=== PATIENT | female | born 2000 | race Two or more races ===

== ENCOUNTER 2020-12-25 15:02 | Outpatient (CLI) | payer OTHER | END 2020-12-25 15:03 | disposition critical access hospital (66) | LOC: EMS 15:02 | DX: R10.9 Unspecified abdominal pain (principal) | CPT/HCPCS: A0425; A0429 ==

== ENCOUNTER 2020-12-25 15:23 | Inpatient (IN) | payer OTHER ==
[2020-12-25] MEDS ORDERED: SODIUM CHLORIDE 0.9% 1,000 ML IV STA ×2 (15:34→17:30)
[2020-12-25] MEDS ORDERED: HYDROmorphone 1 MG/ML CARPUJECT IVP STA ×2 (15:34→17:00)
[2020-12-25] MEDS ORDERED: ONDANSETRON 4 MG/2 ML VIAL IVP STA (15:34)
--- NOTE | 2020-12-25 15:35 | ED Physician Documentation ---
PD HPI ABD PAIN - Stated complaint Stated Complaint: ABD PX - Chief complaint Chief Complaint: Abd Pain - History obtained from History obtained from: Patient - History of Present Illness Timing - onset: How many days ago (2-3) Timing - duration: Days (2-3) Timing - details: Gradual onset Quality: Cramping, Aching, Pain Location: Periumbilical, RLQ, Suprapubic Radiation: Lower back. No: Left flank, Right flank Improved by: Laying still. No: Eating Worsened by: Moving, Palpation. No: Eating Associated symptoms: Nausea, Loss of appetite, Vaginal bleeding (spotting). No: Fever, Vomiting, Diarrhea, Constipation (no BM for 2 days but would not be unusual, per patient.), Vaginal dc Similar symptoms before: Has not had sx before Recently seen: Not recently seen Review of Systems Constitutional: reports: Fever (subjective), Chills, Myalgias Nose: denies: Rhinorrhea / runny nose, Congestion Throat: denies: Sore throat Respiratory: denies: Cough GI: reports: Abdominal Pain, Nausea. denies: Vomiting, Diarrhea : reports: LMP (a month ago), Vaginal bleeding (some spotting). denies: Dysuria, Frequency, Discharge Skin: denies: Rash, Lesions Neurologic: reports: Generalized weakness. denies: Focal weakness, Numbness, Near syncope PD PAST MEDICAL HISTORY - Past Medical History Cardiovascular: None Respiratory: None Neuro: None Endocrine/Autoimmune: None - Past Surgical History Past Surgical History: No - Allergies Allergies/Adverse Reactions: Allergies Allergy/AdvReac Type Severity Reaction Status Date / Time No Known Drug Allergies Allergy Verified 12/25/20 15:30 - Living Situation Living Arrangement: reports: At home - Social History Does the pt smoke?: No Does the pt drink ETOH?: No Does the pt have substance abuse?: No - Family History Family history: reports: Non contributory PD ED PE NORMAL - Vitals Vital signs reviewed: Yes - General General: Alert and oriented X 3, Well developed/nourished, Other (Is moderately uncomfortable due to abdominal pain. There are some moderate distention of the abdomen. Bowel sounds are present but hypoactive.) - HEENT HEENT: Pharynx benign - Neck Neck: Supple, no meningeal sign, No adenopathy - Cardiac Cardiac: No murmur. No: RRR (tachycardic but regular. ) - Respiratory Respiratory: Clear bilaterally - Abdomen Abdomen: Soft, No organomegaly, Other (lower abd in particular with some distension and general tenderness to light palpation and percussion, right more than left. No massess nor hernias. Upper abd not tender. ) - Female Female : Deferred - Rectal Rectal: Deferred - Back Back: No CVA TTP - Derm Derm: Normal color, Warm and dry - Extremities Extremities: Normal ROM s pain, No edema, No calf tenderness / cord - Neuro Neuro: Alert and oriented X 3, No motor deficit, Normal speech Results - Vitals Vitals: Vital Signs - 24 hr 12/25/20 12/25/20 15:30 16:45 Temperature 36.6 C Heart Rate 111 H 112 H Respiratory 18 17 Rate Blood Pressure 128/98 H 140/75 H O2 Saturation 98 99 Oxygen O2 Source Room air - Labs Labs: Laboratory Tests 12/25/20 12/25/20 12/25/20 15:41 15:41 15:41 WBC 11.8 H RBC 5.32 Hgb 14.0 Hct 43.3 MCV 81.4 MCH 26.3 L MCHC 32.3 RDW 13.2 Plt Count 292 MPV 8.9 Neut # (Auto) 9.3 H Lymph # (Auto) 1.6 [place] # (Auto) 0.7 Eos # (Auto) 0.1 Baso # (Auto) 0.0 Absolute Nucleated RBC 0.00 Nucleated RBC % 0.0 Sodium 137 Potassium 3.4 L Chloride 99 L Carbon Dioxide 27 Anion Gap 11.0 BUN 14 Creatinine 0.9 Estimated GFR (MDRD) 81 L Glucose 111 H Calcium 9.1 Total Bilirubin 0.9 AST 20 ALT 35 Alkaline Phosphatase 51 Total Protein 8.4 H Albumin 4.6 Globulin 3.8 Albumin/Globulin Ratio 1.2 Lipase 29 Serum HCG, Qual NEGATIVE - Rads (name of study) abd/pelvic CT Radiology: Prelim report reviewed (Incidental 4 cm left ovarian cyst. mild signs of pelvic free fluid. Appendix shows swelling and inflammation with an small appendicolith, with decreased wall enhancement and some free fluid suggesting perforation.), See rad report PD MEDICAL DECISION MAKING - ED course Complexity details: considered differential (finding c/w acute abd lower abd. Concern for appy, bleeding cyst, ectopic (denies sexual activity), pyelo, other process. ), d/w patient, d/w lead consultant (Dr. Lagos, surgery carbon cleaner. ) Departure - Departure Disposition: ED Transfer to [facility] Clinical Impression: Abdominal pain, acute, right lower quadrant Appendicitis Qualifiers: Appendicitis type: acute appendicitis Acute appendicitis type: with generalized peritonitis Appendicitis gangrene presence: without gangrene Appendicitis perforation presence: with perforation Appendicitis abscess presence: without abscess Qualified Code(s): K35.20 - Acute appendicitis with generalized peritonitis, without abscess Ovarian cyst Qualifiers: Laterality: left Qualified Code(s): N83.202 - Unspecified ovarian cyst, left side Condition: Stable Record reviewed to determine appropriate education?: Yes
[2020-12-25] MEDS ORDERED: IOPAMIDOL-300 50 ML VIAL ONE (15:42)
[2020-12-25 15:51] LABS: BASOPHILS % (AUTO) 0.2 %; EOSINOPHILS # (AUTO) 0.1 10^3/uL (0.0-0.7); EOSINOPHILS % (AUTO) 0.9 %; HCT - HEMATOCRIT 43.3 % (37.0-47.0); LYMPHOCYTES # (AUTO) 1.6 10^3/uL (1.5-3.5); LYMPHOCYTES % (AUTO) 13.8 %; MEAN CORPUSCULAR HEMOGLOBIN 26.3 pg (27.0-31.0); MEAN CORPUSCULAR HGB CONC 32.3 g/dL (32.0-36.0); MEAN CORPUSCULAR VOLUME 81.4 fL (81.0-99.0); MEAN PLATELET VOLUME 8.9 fL (7.9-10.8); MONOCYTES # (AUTO) 0.7 10^3/uL (0.0-1.0); MONOCYTES % (AUTO) 5.9 %; NEUTROPHILS # (AUTO) 9.3 10^3/uL (1.5-6.6); NEUTROPHILS % (AUTO) 78.8 %; PLT - PLATELET COUNT 292 10^3/uL (130-450); RED BLOOD COUNT 5.32 10^6/uL (4.20-5.40); RED CELL DISTRIBUTION WIDTH 13.2 % (12.0-15.0); WHITE BLOOD COUNT 11.8 x10^3/uL (4.8-10.8)
[2020-12-25 16:06] LABS: ALBUMIN 4.6 g/dL (3.2-5.5); ALBUMIN/GLOBULIN RATIO 1.2 (1.0-2.2); BILIRUBIN,TOTAL 0.9 mg/dL (0.2-1.0); CALCIUM 9.1 mg/dL (8.5-10.3); CREATININE 0.9 mg/dL (0.4-1.0); POTASSIUM 3.4 mmol/L (3.5-5.0); TOTAL PROTEIN 8.4 g/dL (6.7-8.2)
[2020-12-25 16:13] LABS: HCG,QUALITATIVE BLOOD NEGATIVE
[2020-12-25] MEDS ORDERED: PIPERACILLIN/TAZOBACTAM 3.375 GM in SODIUM CHLORIDE 0.9% MINIBAG 100 ML IV STA (16:32)
[2020-12-25] MEDS ORDERED: IOPAMIDOL-300 50 ML VIAL IVP ONE (17:00)
--- NOTE | 2020-12-25 17:15 | CT Report ---
PROCEDURE: Abdomen/Pelvis W INDICATIONS: lower abd pain 2 days, right lower mainly CONTRAST: IV CONTRAST: Isovue 300 ml: 100 PO CONTRAST: *NO PO CONTRAST TECHNIQUE: After the administration of 100 mL Isovue-300 contrast, 5 mm thick sections acquired from the diaphra gms to the symphysis. 5 mm thick coronal and sagittal reformats were acquired. For radiation dose r eduction, the following was used: automated exposure control, adjustment of mA and/or kV according t o patient size. COMPARISON: None. FINDINGS: Image quality: Excellent. ABDOMEN: Mild bibasilar atelectasis and respiratory motion. Diffuse hypoattenuation of the liver. Normal appearance of the gallbladder, pancreas, spleen, and adr enal glands. Normal enhancement of the kidneys. No hydronephrosis. Normal course and caliber of the ureters. Normal bladder. Uterus is anteverted. 4.3 cm simple appearing left ovarian cyst. No hilar hernia. No small bowel obstruction. There is mild dilation of the appendix to 9 mm with surr ounding fatty stranding. There is a focal region of loss and wall enhancement along the anterior dist al margin of the appendix which along with a moderately increased degree of free fluid in the pelvis is concerning for perforation. No loculated fluid collection is identified. Free fluid is seen about the uterus predominantly. No enlarged abdominal lymph nodes. No free air. Aorta and inferior vena cava are normal. No acute bony abnormality . IMPRESSION: 1. Acute appendicitis. A small region of decreased wall enhancement in the distal aspect of the appen lucas as well as mildly increased expected volume of free fluid in the pelvis is concerning for perfora tion. 2. While there is a moderate volume of free fluid in the pelvis, no loculated fluid collection is cur rently noted. 3. Hepatic steatosis. 4. There is a 4.3 cm simple appearing left ovarian cyst. Reviewed by: Cale Chambers on 12/25/2020 4:14 PM NOEL Approved by: Cale Chambers on 12/25/2020 4:14 PM NOEL Station ID: [id number]
--- NOTE | 2020-12-25 17:41 | SURGERY HX AND PHYSICAL(T) ---
Surgical History & Physical - Chief Complaint/HPI Chief Complaint: RLQ abdominal pain History of Present Illness: 19 yo female had onset of lower abdominal apin with nausea and anorexia beginning 2 days ago. Pain worse this morning. No diarrhea. No fever. - PMH/PSH/Social Hx Does the pt have a hx of MRSA?: No Neurological History: None Cardiovascular: None Respiratory: None Endocrine/Autoimmune: None Is Patient ?: No Smoking Status: Never smoker Does the pt drink ETOH?: No Does the pt have substance abuse?: No - Family Hx Family Hx: Unremarkable - Home Meds and Allergies Allergies/Adverse Reactions: Allergies Allergy/AdvReac Type Severity Reaction Status Date / Time No Known Drug Allergies Allergy Verified 12/25/20 15:30 - Review of Systems Constitutional: Poor appetite Gastrointestinal: Nausea - Vital Signs Heart Rate: 112 Blood Pressure: 140/75 Temperature: 36.6 C Respiratory Rate: 17 O2 Saturation: 99 Weight (kg): 97.522 kg Height: 1.55 m - Physical Exam Eyes Bilatera: positive: Normal inspection ENT: positive: ENT inspection nml Neck: positive: Nml inspection Respiratory: positive: No respiratory distress Cardiovascular: positive: Regular rate & rhythm Abdomen: positive: Tenderness (RLQ, positive Rovsing's sign), Guarding, Rebound - Patient Review Patient Review: Problems were reviewed with the patient during this visit. Medications were reviewed with the patient during this visit. Allergies were reviewed this patient during this visit. Pertinent Tests Reviewed: All pertitent test for this patient were reviewed. - Assessment & Plan Assessment and Plan: Laboratory Results - last 24 hr 12/25/20 12/25/20 12/25/20 15:41 15:41 15:41 WBC 11.8 H RBC 5.32 Hgb 14.0 Hct 43.3 MCV 81.4 MCH 26.3 L MCHC 32.3 RDW 13.2 Plt Count 292 MPV 8.9 Neut # (Auto) 9.3 H Lymph # (Auto) 1.6 [place] # (Auto) 0.7 Eos # (Auto) 0.1 Baso # (Auto) 0.0 Absolute Nucleated RBC 0.00 Nucleated RBC % 0.0 Sodium 137 Potassium 3.4 L Chloride 99 L Carbon Dioxide 27 Anion Gap 11.0 BUN 14 Creatinine 0.9 Estimated GFR (MDRD) 81 L Glucose 111 H Calcium 9.1 Total Bilirubin 0.9 AST 20 ALT 35 Alkaline Phosphatase 51 Total Protein 8.4 H Albumin 4.6 Globulin 3.8 Albumin/Globulin Ratio 1.2 Lipase 29 Serum HCG, Qual NEGATIVE CT scan abdomen and pelvis: Fatty liver, appendicitis with free fluid in pelvis, possible perforated appendicitis, 4cm simple left ovarian cyst Assessment: Acute appendicitis, possibly perforated Plan: Preop Zosyn given in ER. Patient consented for lap or open appendectomy. Risks of procedure discussed with patient, including but not limited to conversion to open appendectomy, infection, bleeding, abscess formation.
[2020-12-25 17:44] LABS: B. PARAPERTUSSIS- RESP PCR PAN NOT DETECTED; B. PERTUSSIS- RESP PCR PANEL NOT DETECTED; C. PNEUMONIAE- RESP PCR PANEL NOT DETECTED; CORONAVIRUS 229E-RESP PCR NOT DETECTED; CORONAVIRUS HKU1-RESP PCR NOT DETECTED; CORONAVIRUS NL63-RESP PCR NOT DETECTED; CORONAVIRUS OC43-RESP PCR NOT DETECTED; HUMAN METAPNEUMOVIRUS NOT DETECTED; INFLUENZA A- RESP PCR PANEL NOT DETECTED; INFLUENZA B - RESP PCR PANEL NOT DETECTED; M. PNEUMONIAE- RESP PCR PANEL NOT DETECTED; PARAINFLUENZA VIRUS 1 NOT DETECTED; PARAINFLUENZA VIRUS 2 NOT DETECTED; PARAINFLUENZA VIRUS 3 NOT DETECTED; PARAINFLUENZA VIRUS 4 NOT DETECTED; RHINOVIRUS/ENTEROVIRUS NOT DETECTED; RSV- RESP PCR PANEL NOT DETECTED; SARS-CoV-2 -RESP PCR PANEL NOT DETECTED
--- NOTE | 2020-12-25 17:56 | ANESTHESIA ---
Pre-Anesthesia VS, & Labs - Diagnosis appendecitisis - Procedure laparoscopic appendectomy Vital Signs: Temp Pulse Resp BP Pulse Ox 36.6 C 112 H 17 140/75 H 99 12/25/20 17:46 12/25/20 17:46 12/25/20 17:46 12/25/20 17:46 12/25/20 17:46 Height: 5 ft 1 in Weight (kg): 97.522 kg Body Mass Index: 40.6 BMI Classification: Morbidly Obese - NPO >8 hours - Is Patient ?: No - Lab Results Current Lab Results: Laboratory Tests 12/25/20 15:41: Serum HCG, Qual NEGATIVE 12/25/20 15:41: Sodium 137, Potassium 3.4 L, Chloride 99 L, Carbon Dioxide 27, Anion Gap 11.0, BUN 14, Creatinine 0.9, Estimated GFR (MDRD) 81 L, Glucose 111 H , Calcium 9.1, Total Bilirubin 0.9, AST 20, ALT 35, Alkaline Phosphatase 51, Total Protein 8.4 H, Albumin 4.6, Globulin 3.8, Albumin/Globulin Ratio 1.2, Lipase 29 12/25/20 15:41: WBC 11.8 H, RBC 5.32, Hgb 14.0, Hct 43.3, MCV 81.4, MCH 26.3 L, MCHC 32.3, RDW 13.2, Plt Count 292, MPV 8.9, Neut # (Auto) 9.3 H, Lymph # (Auto) 1.6, [place] # (Auto) 0.7, Eos # (Auto) 0.1, Baso # (Auto) 0.0, Absolute Nucleated RBC 0.00, Nucleated RBC % 0.0 Lab results reviewed: Yes Fish Bones: 12/25/20 15:41 12/25/20 15:41 Home Medications and Allergies Home Medications: Ambulatory Orders No Known Home Medications 12/25/20 Active Medications Sodium Chloride (Normal Saline 0.9%) 1,000 mls @ 500 mls/hr IV .Q2H STA Stop: 12/25/20 19:29 Last Admin: 12/25/20 17:41 Dose: 500 mls/hr Documented by: Allergies/Adverse Reactions: Allergies Allergy/AdvReac Type Severity Reaction Status Date / Time No Known Drug Allergies Allergy Verified 08/29/21 15:30 Anes History & Medical History - Anesthetic History Anesthesia Complications: reports: No previous complications Family history of Anesthesia Complications: Denies Family history of Malignant Hyperthermia: Denies - Medical History Cardiovascular: reports: None Pulmonary: reports: None Neuro: reports: None Endocrine/Autoimmune: reports: None Smoking Status: Current some day smoker Psychosocial: reports: Cannabis Exam General: Alert, Oriented x3, Cooperative, No acute distress Dental: Other Mouth and Teeth Image: 1 - missing Neck Mobility: Normal Mallampati classification: III Respiratory: Lungs clear, Normal breath sounds, No respiratory distress, No accessory muscle use Cardiovascular: Regular rate, Normal S1, Normal S2, No murmurs Plan Anesthesia Type: General Consent for Procedure(s) Verified and Reviewed: Yes Code Status: Attempt Resuscitation ASA classification: 3-Severe systemic disease Is this case an emergency?: Yes
[2020-12-25] MEDS ORDERED: MIDAZOLAM 2 MG/2 ML VIAL ONE (17:57)
[2020-12-25] MEDS ORDERED: fentaNYL 100 MCG/2 ML VIAL ONE ×2 (17:57→18:45)
[2020-12-25] MEDS ORDERED: LIDOCAINE-MPF 2% 5 ML VIAL ONE (17:58)
[2020-12-25] MEDS ORDERED: ONDANSETRON 4 MG/2 ML VIAL ONE (17:58)
[2020-12-25] MEDS ORDERED: DEXAMETHASONE 4 MG/ML VIAL ONE (17:58)
[2020-12-25] MEDS ORDERED: PROPOFOL 200 MG/20 ML VIAL IVP ONE (17:58)
[2020-12-25] MEDS ORDERED: ROCURONIUM 50 MG/5 ML VIAL ONE (17:58)
[2020-12-25] MEDS ORDERED: KETOROLAC 30 MG/ML VIAL ONE (17:59)
[2020-12-25 18:00] LABS: BILIRUBIN,URINE NEGATIVE (NEGATIVE); GLUCOSE, URINE (UA) NEGATIVE (NEGATIVE); KETONES,URINE (UA) TRACE mg/dL (NEGATIVE); LEUKOCYTE ESTERASE, URINE NEGATIVE (NEGATIVE); NITRITE,URINE NEGATIVE (NEGATIVE); OCCULT BLOOD,URINE MODERATE (NEGATIVE); PROTEIN,URINE TRACE mg/dL (NEGATIVE); UROBILINOGEN,URINE 0.2 (NORMAL) E.U./dL (NORMAL)
[2020-12-25 18:02] LABS: CLARITY,URINE HAZY (CLEAR)
[2020-12-25] MEDS ORDERED: BUPIVACAINE 0.5%-EPI 1:200000 PF 30 ML VIAL ONE (18:09)
[2020-12-25 18:17] LABS: BACTERIA,URINE Few /HPF (None Seen); SQUAMOUS EPITHELIAL CELL,UR FEW Squamous (<= Few); WBC,URINE 0-3 /HPF (0-5)
[2020-12-25] MEDS ORDERED: BUPIVACAINE 0.5%-EPI 1:200000 PF 30 ML VIAL SUBQ ONE (18:52)
[2020-12-25] MEDS ORDERED: SUGAMMADEX 200 MG/2 ML VIAL IVP ONE (19:07)
--- NOTE | 2020-12-25 19:26 | OPERATIVE REPORT ---
Operative Report - General Planned Procedure: Laparoscopic appendectomy Pre-Op Diagnosis: Acute appendicitis, possibly perforated Procedure Performed: Laparoscopic appendectomy Post Op Diagnosis: Perforated appendicitis - Procedure Note Primary Surgeon: Alfredo Lagos MD Secondary Surgeon: None Anesthesia Provider: Dejan Avery CRNA Anesthesia Technique: General ET tube Estimated Blood Loss (mL): 20 Indications: 19-year-old female with over 2 days of abdominal pain localizing to the right lower quadrant. CT scan confirms acute appendicitis and free pelvic fluid suggests possible perforated appendicitis Findings: Perforated appendicitis, no abscess or loculation. Large left ovarian simple cyst. Complications: none - Other Other Information/Narrative: Patient was taken to the operating room where general esthesia was induced patient was intubated and the lower abdomen is prepped with ChloraPrep and sterilely draped in the usual fashion. After a timeout, incision was made at the umbilicus with a scalpel and Metzenbaum scissors dissection down to the peritoneum. 5 mm trocar was placed atraumatically and CO2 was insufflated. A 5 mm 0 degree laparoscope was inserted and used to visualize the anterior abdominal wall as a 12 mm trocar was placed to the left of midline in the suprapubic location and a 5 mm trocar was placed in the right lower quadrant. There was free fluid in the pelvis which was aspirated. The appendix was identified with an area of perforation in the mid appendix. The appendix was mobilized and the mesoappendix was divided with an Endo YANA vascular stapler. The base of the appendix was then stapled across with Endo YANA stapler and the appendix was placed into an Endopouch. The pelvis and right lower quadrant were irrigated well with saline and aspirated dry. The appendix in the Endopouch was withdrawn through the 12 mm trocar site, CO2 was desufflated from the abdomen and all trochars were removed after ensuring good hemostasis. Fascia at the umbilical and left suprapubic trocar sites was closed with 0 Vicryl on a UR needle and skin incisions were closed with 5-0 Monocryl. Surgical glue was applied to the incisions. Patient was extubated and taken to recovery in stable condition.
[2020-12-25] MEDS ORDERED: LACTATED RINGERS 1,000 ML IV ONE (19:34)
[2020-12-25] MEDS ORDERED: ONDANSETRON 4 MG/2 ML VIAL IVP PRN ×2 (19:52→19:55)
[2020-12-25] MEDS ORDERED: SODIUM CHLORIDE FLUSH 0.9% 10 ML SYRINGE IVP PRN (19:54)
[2020-12-25] MEDS ORDERED: ATROPINE ABBOJECT 1 MG/10 ML SYRINGE IVP PRN (19:55)
[2020-12-25] MEDS ORDERED: ePHEDrine 50 MG/ML VIAL IVP PRN (19:55)
[2020-12-25] MEDS ORDERED: METOCLOPRAMIDE 10 MG/2 ML VIAL IVP PRN (19:55)
[2020-12-25] MEDS ORDERED: HYDROmorphone 0.5 MG/0.5 ML SYRINGE IVP PRN (19:55)
[2020-12-25] MEDS ORDERED: MORPHINE 2 MG/ML CARPUJECT IVP PRN (19:55)
[2020-12-25] MEDS ORDERED: NALOXONE 0.4 MG/ML VIAL IVP PRN (19:55)
[2020-12-25] MEDS ORDERED: fentaNYL 100 MCG/2 ML VIAL IVP PRN (19:55)
--- NOTE | 2020-12-25 19:55 | ANESTHESIA POST OP EVALUATION ---
Anesthesia Post Eval - Post Anesthesia Eval Vitals: Last Vital Signs Temp 37.7 C 12/25/20 19:45 Pulse 114 H 12/25/20 19:45 Resp 20 12/25/20 19:45 BP 112/56 L 12/25/20 19:45 Pulse Ox 94 12/25/20 19:45 CV Function Including HR & BP: Stable Pain Control: Satisfactory Nausea & Vomiting: Negative Mental Status: Baseline Respiratory Status: Airway Patent Hydration Status: Satisfactory Anesthesia Complications: None
[2020-12-25] MEDS ORDERED: LACTATED RINGERS 1,000 ML IV SCH (20:00)
[2020-12-25] MEDS: oxyCODONE 5 MG TABLET PO PRN (21:00)
[2020-12-25] MEDS: PIPERACILLIN/TAZOBACTAM 3.375 GM in SODIUM CHLORIDE 0.9% MINIBAG 100 ML IV SCH (21:11)
[2020-12-26] MEDS: oxyCODONE 5 MG TABLET PO PRN ×3 (00:56→17:13)
[2020-12-26] MEDS: SODIUM CHLORIDE FLUSH 0.9% 10 ML SYRINGE IVP SCH ×4 (01:16→23:48)
[2020-12-26] MEDS: PIPERACILLIN/TAZOBACTAM 3.375 GM in SODIUM CHLORIDE 0.9% MINIBAG 100 ML IV SCH ×3 (04:41→19:27)
--- NOTE | 2020-12-26 09:11 | PROVIDER PROGRESS NOTE ---
Subjective - General Admit Date: 12/25/20 Procedure Date: 12/25/20 Post Op Days: 1 Procedure Performed: lap appendectomy - Review of Systems Wound/Incisions: positive: Healing well General: positive: No symptoms - Other Other Information/Narrative: 19 yo female 1 day postop lap appy for perforated appendicitis. C/o pain in abdomen when ambulating. No N/V/fever. On Zosyn for perforation. Vital Signs Temp 37.1 C 12/26/20 07:56 Pulse 96 12/26/20 07:56 Resp 19 12/26/20 07:56 BP 121/65 12/26/20 07:56 Pulse Ox 97 12/26/20 07:56 Intake & Output 12/25/20 12/25/20 12/26/20 11:59 23:59 11:59 Intake Total 2100 220 Output Total 300 800 Balance 1800 -580 Intake: Intake, IV Amount 2100 100 Piperacillin/Tazobactam 3 100 .375 gm In Sodium Chloride 0.9% Minibag 100 ml @ 200 mls/hr IV ONCE STA Rx#:[id number] Piperacillin/Tazobactam 3 100 .375 gm In Sodium Chloride 0.9% Minibag 100 ml @ 25 mls/hr IV Q8H ALLYN Rx#:[id number] Sodium Chloride 0.9% 1, 1000 000 ml @ 500 mls/hr IV . Q2H STA Rx#:[id number] Sodium Chloride 0.9% 1, 1000 000 ml @ Wide Open IV . Q0M STA Rx#:[id number] Oral 120 Output: Urine 300 800 Other: # Voids 1 1 % Meal consumed 25% Exam: Abdomen soft, not distended, incisions Ok Assess: Perforated appendicitis POD#1 Plan: Continue Zosyn Diet as tolerated Check CBC in am. Objective - Patient Data Vital Signs: Vital Signs x48h Temp Pulse Resp BP Pulse Ox 12/26/20 07:56 37.1 C 96 19 121/65 97 12/26/20 05:09 37.3 C 96 20 118/50 L 97 Weight: Weight 12/24/20 12/25/20 12/26/20 23:59 23:59 23:59 Weight (kg) 105 kg Intake & Output: Intake and Output Totals x24h 12/24/20 12/25/20 12/26/20 23:59 23:59 23:59 Intake Total 2100 220 Output Total 300 800 Balance 1800 -580 - Lab Results Lab Results: 12/25/20 15:41 12/25/20 15:41 Other Lab Results: Lab Results x24hrs 12/25/20 12/25/20 12/25/20 Range/Units 17:45 16:48 15:41 WBC (4.8-10.8) x10^3/uL RBC (4.20-5.40) 10^6/uL Hgb (12.0-16.0) g/dL Hct (37.0-47.0) % MCV (81.0-99.0) fL MCH (27.0-31.0) pg MCHC (32.0-36.0) g/dL RDW (12.0-15.0) % Plt Count (130-450) 10^3/uL MPV (7.9-10.8) fL Neut # (Auto) (1.5-6.6) 10^3/uL Lymph # (Auto) (1.5-3.5) 10^3/uL [place] # (Auto) (0.0-1.0) 10^3/uL Eos # (Auto) (0.0-0.7) 10^3/uL Baso # (Auto) (0.0-0.1) 10^3/uL Absolute Nucleated RBC x10^3/uL Nucleated RBC % /100WBC Sodium (135-145) mmol/L Potassium (3.5-5.0) mmol/L Chloride (101-111) mmol/L Carbon Dioxide (21-32) mmol/L Anion Gap (6-13) BUN (6-20) mg/dL Creatinine (0.4-1.0) mg/dL Estimated GFR (MDRD) (>89) Glucose (70-100) mg/dL Calcium (8.5-10.3) mg/dL Total Bilirubin (0.2-1.0) mg/dL AST (10-42) IU/L ALT (10-60) IU/L Alkaline Phosphatase (42-121) IU/L Total Protein (6.7-8.2) g/dL Albumin (3.2-5.5) g/dL Globulin (2.1-4.2) g/dL Albumin/Globulin Ratio (1.0-2.2) Lipase (22-51) U/L Serum HCG, Qual NEGATIVE Urine Color YELLOW Urine Clarity HAZY (CLEAR) Urine pH 6.0 (5.0-7.5) PH Ur Specific [place] 1.010 (1.002-1.030) Urine Protein TRACE (NEGATIVE) mg/dL Urine Glucose (UA) NEGATIVE (NEGATIVE) mg/dL Urine Ketones TRACE (NEGATIVE) mg/dL Urine Occult Blood MODERATE H (NEGATIVE) Urine Nitrite NEGATIVE (NEGATIVE) Urine Bilirubin NEGATIVE (NEGATIVE) Urine Urobilinogen 0.2 (NORMAL) (NORMAL) E.U./dL Ur Leukocyte Esterase NEGATIVE (NEGATIVE) Urine RBC 6-10 H (0-5) /HPF Urine WBC 0-3 (0-5) /HPF Ur Squamous Epith Cells FEW Squamous (<= Few) Urine Bacteria Few (None Seen) /HPF Ur Microscopic Review INDICATED Urine Culture Comments NOT INDICATED Nasal Adenovirus (PCR) NOT DETECTED Nasal B. parapertussis DNA (PCR) NOT DETECTED Nasal Coronavir 229E PCR NOT DETECTED Nasal Coronavir HKU1 PCR NOT DETECTED Nasal Coronavir NL63 PCR NOT DETECTED Nasal Coronavir OC43 PCR NOT DETECTED Nasal Enterovir/Rhinovir PCR NOT DETECTED Nasal Influenza B PCR NOT DETECTED Nasal Influenza A PCR NOT DETECTED Nasal Parainfluen 1 PCR NOT DETECTED Nasal Parainfluen 2 PCR NOT DETECTED Nasal Parainfluen 3 PCR NOT DETECTED Nasal Parainfluen 4 PCR NOT DETECTED Nasal RSV (PCR) NOT DETECTED Nasal B.pertussis DNA PCR NOT DETECTED Nasal C.pneumoniae (PCR) NOT DETECTED Donny Human Metapneumo PCR NOT DETECTED Nasal M.pneumoniae (PCR) NOT DETECTED Nasal SARS-CoV-2 (PCR) NOT DETECTED 12/25/20 12/25/20 Range/Units 15:41 15:41 WBC 11.8 H (4.8-10.8) x10^3/uL RBC 5.32 (4.20-5.40) 10^6/uL Hgb 14.0 (12.0-16.0) g/dL Hct 43.3 (37.0-47.0) % MCV 81.4 (81.0-99.0) fL MCH 26.3 L (27.0-31.0) pg MCHC 32.3 (32.0-36.0) g/dL RDW 13.2 (12.0-15.0) % Plt Count 292 (130-450) 10^3/uL MPV 8.9 (7.9-10.8) fL Neut # (Auto) 9.3 H (1.5-6.6) 10^3/uL Lymph # (Auto) 1.6 (1.5-3.5) 10^3/uL [place] # (Auto) 0.7 (0.0-1.0) 10^3/uL Eos # (Auto) 0.1 (0.0-0.7) 10^3/uL Baso # (Auto) 0.0 (0.0-0.1) 10^3/uL Absolute Nucleated RBC 0.00 x10^3/uL Nucleated RBC % 0.0 /100WBC Sodium 137 (135-145) mmol/L Potassium 3.4 L (3.5-5.0) mmol/L Chloride 99 L (101-111) mmol/L Carbon Dioxide 27 (21-32) mmol/L Anion Gap 11.0 (6-13) BUN 14 (6-20) mg/dL Creatinine 0.9 (0.4-1.0) mg/dL Estimated GFR (MDRD) 81 L (>89) Glucose 111 H (70-100) mg/dL Calcium 9.1 (8.5-10.3) mg/dL Total Bilirubin 0.9 (0.2-1.0) mg/dL AST 20 (10-42) IU/L ALT 35 (10-60) IU/L Alkaline Phosphatase 51 (42-121) IU/L Total Protein 8.4 H (6.7-8.2) g/dL Albumin 4.6 (3.2-5.5) g/dL Globulin 3.8 (2.1-4.2) g/dL Albumin/Globulin Ratio 1.2 (1.0-2.2) Lipase 29 (22-51) U/L Serum HCG, Qual Urine Color Urine Clarity (CLEAR) Urine pH (5.0-7.5) PH Ur Specific [place] (1.002-1.030) Urine Protein (NEGATIVE) mg/dL Urine Glucose (UA) (NEGATIVE) mg/dL Urine Ketones (NEGATIVE) mg/dL Urine Occult Blood (NEGATIVE) Urine Nitrite (NEGATIVE) Urine Bilirubin (NEGATIVE) Urine Urobilinogen (NORMAL) E.U./dL Ur Leukocyte Esterase (NEGATIVE) Urine RBC (0-5) /HPF Urine WBC (0-5) /HPF Ur Squamous Epith Cells (<= Few) Urine Bacteria (None Seen) /HPF Ur Microscopic Review Urine Culture Comments Nasal Adenovirus (PCR) Nasal B. parapertussis DNA (PCR) Nasal Coronavir 229E PCR Nasal Coronavir HKU1 PCR Nasal Coronavir NL63 PCR Nasal Coronavir OC43 PCR Nasal Enterovir/Rhinovir PCR Nasal Influenza B PCR Nasal Influenza A PCR Nasal Parainfluen 1 PCR Nasal Parainfluen 2 PCR Nasal Parainfluen 3 PCR Nasal Parainfluen 4 PCR Nasal RSV (PCR) Nasal B.pertussis DNA PCR Nasal C.pneumoniae (PCR) Donny Human Metapneumo PCR Nasal M.pneumoniae (PCR) Nasal SARS-CoV-2 (PCR) - Current Medications Current Medications: Current Medications Generic Name Dose Route Start Last Admin Trade Name Freq PRN Reason Stop Dose Admin Piperacillin Sod/Tazobactam 100 mls @ 25 mls/hr 12/25/20 20:00 12/26/20 04:41 Sod 3.375 gm/ Sodium Chloride IV 25 mls/hr Q8H ALLYN Administration Oxycodone HCl 5 mg 12/25/20 19:52 12/26/20 00:56 Oxycodone 5 Mg Tablet PO 5 mg Q4HR PRN Administration PAIN Sodium Chloride 10 ml 12/26/20 01:00 12/26/20 01:16 Sodium Chloride Flush 0.9% 10 Ml Syringe IVP 10 ml 0100,0900,1700 ALLYN Administration
[2020-12-26] MEDS: MORPHINE 2 MG/ML CARPUJECT IVP PRN ×3 (15:40→23:48)
[2020-12-26] MEDS: ACETAMINOPHEN 325 MG TABLET PO PRN (20:33)
[2020-12-27] MEDS: PIPERACILLIN/TAZOBACTAM 3.375 GM in SODIUM CHLORIDE 0.9% MINIBAG 100 ML IV SCH (03:49)
[2020-12-27] MEDS: oxyCODONE 5 MG TABLET PO PRN ×2 (04:41→11:18)
[2020-12-27 04:51] LABS: BASOPHILS % (AUTO) 0.3 %; EOSINOPHILS # (AUTO) 0.1 10^3/uL (0.0-0.7); EOSINOPHILS % (AUTO) 0.6 %; HCT - HEMATOCRIT 36.4 % (37.0-47.0); HGB - HEMOGLOBIN 11.4 g/dL (12.0-16.0); LYMPHOCYTES # (AUTO) 2.5 10^3/uL (1.5-3.5); LYMPHOCYTES % (AUTO) 21.3 %; MEAN CORPUSCULAR HEMOGLOBIN 25.8 pg (27.0-31.0); MEAN CORPUSCULAR HGB CONC 31.3 g/dL (32.0-36.0); MEAN CORPUSCULAR VOLUME 82.4 fL (81.0-99.0); MEAN PLATELET VOLUME 9.3 fL (7.9-10.8); MONOCYTES # (AUTO) 0.9 10^3/uL (0.0-1.0); MONOCYTES % (AUTO) 7.5 %; NEUTROPHILS # (AUTO) 8.3 10^3/uL (1.5-6.6); NEUTROPHILS % (AUTO) 69.9 %; PLT - PLATELET COUNT 247 10^3/uL (130-450); RED BLOOD COUNT 4.42 10^6/uL (4.20-5.40); RED CELL DISTRIBUTION WIDTH 13.3 % (12.0-15.0); WHITE BLOOD COUNT 11.9 x10^3/uL (4.8-10.8)
[2020-12-27] MEDS: SODIUM CHLORIDE FLUSH 0.9% 10 ML SYRINGE IVP SCH (08:15)
[2020-12-27] MEDS: ACETAMINOPHEN 325 MG TABLET PO PRN (08:15)
[2020-12-27] MEDS ORDERED: polyethylene glycoL 3350 17 GM PACKET PO SCH (09:00)
[2020-12-27 10:07] VITALS: BP 116/55
--- NOTE | 2020-12-27 10:11 | DISCHARGE SUMMARY ---
"Discharge Summary Admit Date: 12/25/20 Discharge Date: 12/27/20 Discharging Provider: Demond Code Status: Attempt Resuscitation Condition at Discharge: Good Discharge Disposition: 01 Home, Self Care - DIAGNOSES Admission Diagnoses: Acute perforated appendicitis Discharge Diagnoses with Status of Each Condition: Acute perforated appendicitis treated by laparoscopic appendectomy 12/25/2020 - HPI History of Present Illness: 19 yo female presented with 3 day hx of abdominal pain localizing to RLQ. CT confirmed appendicitis with likely perforation. Lap appendectomy done and showed acute perforated appendicitis without loculation or abscess. Pt received IV Zosyn preop and postop for 2 days. - CONSULTS | PROCEDURES Consultations: none Procedures: Lap appendectomy - HOSPITAL COURSE Hospital Course: Given IV Zosyn perioperatively for 2 days. Remained afebrile , tolerated diet, incisions healing well. WBC 11K on POD#2, day of discharge. Will D/C home on Keflex and Flagyl for one week. Folllow up in surgery clinic in one week. Patient cautioned to watch for fever, increased pain, return to ER if any concerns. - ALLERGIES Allergies/Adverse Reactions: Allergies Allergy/AdvReac Type Severity Reaction Status Date / Time No Known Drug Allergies Allergy Verified 12/25/20 15:30 - MEDICATIONS Home Medications: Ambulatory Orders Medication Instructions Recorded Confirmed No Known Home Medications 12/25/20 12/25/20 - PHYSICAL EXAM AT DISCHARGE General Appearance: positive: No acute distress Abdomen: positive: Non-tender, No distention. negative: Tenderness - LABS Result Diagrams: 12/27/20 04:24 12/25/20 15:41 - FOLLOW UP Follow Up: Surgery clinic in one week - TIME SPENT Time Spent in Discharge (Minutes): 20"
--- NOTE | 2020-12-27 10:20 | Discharge Plan ---
Discharge Plan Problem Reviewed?: Yes Disposition: Home, Self Care Condition: Good Prescriptions: cephALEXin [Keflex] 500 mg PO Q6HR #30 metroNIDAZOLE [Flagyl] 500 mg PO Q8H #21 tablet Diet: Regular Activity Restrictions: Activity as Tolerated Shower Restrictions: No Driving Restrictions: No Additional Instructions or Follow Up instructions: Follow up with [facility] in one week No Smoking: If you smoke, Please STOP! Call for help.
[2020-12-27] MEDS ORDERED: metroNIDAZOLE 250 MG TABLET PO SCH (11:00)
[2020-12-27] MEDS ORDERED: cephALEXin 250 MG CAPSULE PO SCH (12:00)
== END 2020-12-27 11:39 | disposition home or self-care (01) | DRG 339 ==
LOC: ED 15:23 → SDS 17:35 → MS2 19:54
PROVIDERS: ADMIT Surgery; ATTEND Surgery
PROC: 0DTJ4ZZ Resection of Appendix, Percutaneous Endoscopic Approach (ICD-10-PCS; principal; 2020-12-25 19:00)
DX: K35.32 Acute appendicitis with perforation, localized peritonitis, and gangrene, without abscess (principal); Z68.41 Body mass index [BMI] 40.0-44.9, adult; N83.202 Unspecified ovarian cyst, left side; E66.01 Morbid (severe) obesity due to excess calories; Z20.822 Contact with and (suspected) exposure to COVID-19; F17.200 Nicotine dependence, unspecified, uncomplicated
CPT/HCPCS: 0202U; 36415; 74177; 80053; 81001; 83690; 84703; 85025; 96365; 96375; 96376; 99284; 99285; A9270; J1170; J7120; Q9967; 81003; 87086

== ENCOUNTER 2021-06-28 13:30 | Outpatient (CLI) | payer OTHER ==
[2021-06-28 23:16] LABS: CHLAMYDIA TRACHOMATIS DNA NEGATIVE (NEGATIVE); NEISSERIA GONORRHOEAE DNA NEGATIVE (NEGATIVE); TRICHOMONAS VAGINALIS DNA NEGATIVE (NEGATIVE)
[2021-06-29 10:06] LABS: HEPATITIS C ANTIBODY NON-REACTIVE (NON-REACTIVE)
[2021-06-29 13:20] LABS: HIV AG/AB 4TH GEN NON-REACTIVE (NON-REACTIVE)
== END 2021-06-28 23:59 | disposition home or self-care (01) ==
LOC: LAB.N 13:30
PROVIDERS: ATTEND Physician Assistant
DX: Z20.2 Contact with and (suspected) exposure to infections with a predominantly sexual mode of transmission (principal)
CPT/HCPCS: 36415; 86592; 86803; 87389; 87491; 87591; 87661

== ENCOUNTER 2022-02-23 15:08 | Emergency (ER) | payer OTHER ==
[2022-02-23 15:22] VITALS: BP 155/72
--- NOTE | 2022-02-23 15:25 | ED Physician Documentation ---
PD HPI HEENT - Stated complaint Stated Complaint: NOSE BLEEDING - Chief complaint Chief Complaint: Heent - History obtained from History obtained from: Patient - History of Present Illness Timing - onset: Today Timing - duration: Minutes Timing - details: Abrupt onset, Now resolved (had onset left nasal bleeding today that lasted few minutes and resolved with pinching. Has had it occur intermittently with the weather change recently. 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 States runny nose commonly.) Recently seen: Not recently seen Review of Systems Constitutional: denies: Fever, Chills Nose: reports: Congestion, Epistaxis. denies: Sinus pressure / pain Throat: denies: Sore throat Respiratory: denies: Cough Skin: denies: Rash, Lesions PD PAST MEDICAL HISTORY - Past Medical History Cardiovascular: None Respiratory: None Neuro: None Endocrine/Autoimmune: None HEENT: Other Other Past Medical History: recurrent nose bleeds - Past Surgical History Past Surgical History: No - Present Medications Home Medications: Ambulatory Orders Medication Instructions Recorded Confirmed Fluticasone Propionate 2 spr NS DAILY 30 Days #1 ml 02/23/22 - Allergies Allergies/Adverse Reactions: Allergies Allergy/AdvReac Type Severity Reaction Status Date / Time No Known Drug Allergies Allergy Verified 02/23/22 15:22 - Social History Does the pt smoke?: No Smoking Status: Never smoker Does the pt drink ETOH?: No Does the pt have substance abuse?: No - Immunizations Immunizations are current?: No PD ED PE NORMAL - Vitals Vital signs reviewed: Yes - General General: Alert and oriented X 3, No acute distress, Well developed/nourished - HEENT HEENT: Moist mucous membranes, Pharynx benign, Other (both nareas with some redness and inflammation of mucosa. Left lateral wall with local inflammed small vessel with clot on it. Nose stud piercing noted but no redness nor discharge at the piercing site itself. ) - Neck Neck: Supple, no meningeal sign, No adenopathy Results - Vitals Vitals: Oxygen O2 Source Room air PD MEDICAL DECISION MAKING - ED course Complexity details: considered differential (seems mucosal general irritation in nares. There is focal inflammed vessel left lateral wall. There is nose stud piercing but no redness in that area. Does not appear staph infection. ), d/w patient Departure - Departure Disposition: 01 Home, Self Care Clinical Impression: Anterior epistaxis Condition: Stable Record reviewed to determine appropriate education?: Yes Instructions: Nosebleed Prescriptions: Fluticasone Propionate 2 spr NS DAILY 30 Days #1 ml Comments: There does appear to be an irritation in the front part of the nasal wall that had bled. I placed a sealant on there and that spot itself should not bleed more. However there does appear to be general redness and inflammation on the ortiz in the anterior nasal passageways. I would suggest very lightly applying some ointment such as Vaseline or antibiotic ointment gently daily to the area. For the next several days to week or so I would also suggest some saline nose spray every few hours during the day to keep the nasal passages moist and less irritated. It does look like there may be some underlying irritation such as environmental allergies or irritants given the general redness of the nasal mucosa. I wrote for fluticasone steroid nasal spray to use 1 spray in each nostril daily for the next month. Recheck if recurring episodes still. It does not look or sound like an underlying more significant issue but just a local irritation. Discharge Date/Time: 02/23/22 15:52
[2022-02-23] MEDS ORDERED: SILVER NITRATE APPLICATOR TOP STA (15:38)
== END 2022-02-23 15:52 | disposition home or self-care (01) ==
LOC: ED 15:08
DX: R04.0 Epistaxis (principal)
CPT/HCPCS: 99282

== ENCOUNTER 2022-10-13 08:57 | Emergency (ER) | payer OTHER ==
[2022-10-13 09:15] VITALS: BP 134/80
--- NOTE | 2022-10-13 10:06 | ED Physician Documentation ---
PD HPI HEADACHE - Stated complaint Stated Complaint: HEAD PX - Chief complaint Chief Complaint: Neuro - History obtained from History obtained from: Patient - History of Present Illness Timing - onset: How many weeks ago Timing - onset during: Light activity Timing - duration: Weeks Timing - details: Abrupt onset, Now resolved, Intermittant (she will have unilateral headache (not same side) that is sharp and lasts just 2-3 minutes. Not time enough to take meds. No other focal deficits nor changes with the headache. She has had at least 4 episodes. No headache nor symptoms between episodes.) Worst headache ever?: Worst headache ever? Location: Left Quality: Stabbing, Tightness Associated symptoms: No: Fever, Stiff neck, Nausea, Vomiting, Weakness, Numbness, Vision changes Worsened by: No: Light, Noise Contributing factors: No: Hypertension, Recent illness, Trauma Similar symptoms before: Has not had sx before Recently seen: Not recently seen Review of Systems Constitutional: denies: Fever, Chills Nose: denies: Rhinorrhea / runny nose, Congestion Throat: denies: Sore throat Respiratory: denies: Cough GI: reports: Abdominal Pain, Nausea. denies: Vomiting Skin: denies: Rash, Lesions Musculoskeletal: denies: Neck pain, Back pain PD PAST MEDICAL HISTORY - Past Medical History Cardiovascular: None Respiratory: None Neuro: None Endocrine/Autoimmune: None HEENT: Other - Past Surgical History Past Surgical History: No - Present Medications Home Medications: Ambulatory Orders Medication Instructions Recorded Confirmed Fluticasone Propionate 2 spr NS DAILY 30 Days #1 ml 02/23/22 Meloxicam [Mobic] 7.5 mg PO BID 10 Days #20 tablet 10/13/22 - Allergies Allergies/Adverse Reactions: Allergies Allergy/AdvReac Type Severity Reaction Status Date / Time No Known Drug Allergies Allergy Verified 10/13/22 09:11 - Social History Does the pt smoke?: No Smoking Status: Never smoker Does the pt drink ETOH?: No Does the pt have substance abuse?: No - Immunizations Immunizations are current?: No PD ED PE NORMAL - Vitals Vital signs reviewed: Yes - HEENT HEENT: Atraumatic, PERRL, EOMI, Ears normal, Pharynx benign - Neck Neck: Supple, no meningeal sign, No adenopathy - Cardiac Cardiac: RRR, No murmur - Respiratory Respiratory: Clear bilaterally - Derm Derm: Normal color, Warm and dry - Extremities Extremities: No deformity Results - Vitals Vitals: Vital Signs - 24 hr 10/13/22 09:05 Temperature 36.5 C Heart Rate 87 Respiratory 16 Rate Blood Pressure 134/80 H O2 Saturation 99 Oxygen O2 Source Room air - Rads (name of study) head CT Relevant Findings:: Prelim report reviewed (no acute process on CT scan. ), EMP independent interpretation of test, See rad report PD Medical Decision Making - ED course Complexity details: re-evaluated patient (Having some congestion and vertigo intermittently with then development of vertigo.), d/w patient Departure - Departure Disposition: Home, Self Care Clinical Impression: Intermittent headache Condition: Stable Record reviewed to determine appropriate education?: Yes Instructions: ED Cephalgia Unspecified Prescriptions: Meloxicam [Mobic] 7.5 mg PO BID 10 Days #20 tablet Comments: Your head CT scan is normal without any obvious sinus problems and no intracranial masses or tumors. The character of your headache sounds likely to be a functional headache such as recurrent daily headache (even though its not daily at this point). This would initially be treated with anti-inflammatories daily for a week or 2 and see if the headaches generally are not occurring. Add Tylenol every 4-6 hours if needed for headache/pains if they are consistent enough. The character of the headaches does not sound like true migraines so I would not necessarily try migraine medicine per se. Follow-up with your primary care if your having the recurring headaches still for try of other medications or other testing. Forms: Activity restrictions Discharge Date/Time: 10/13/22 12:47
--- NOTE | 2022-10-13 12:03 | CT Report ---
PROCEDURE: CT brain without contrast INDICATIONS: intermittent SCOTT for few weeks TECHNIQUE: Noncontrast 4.5 mm thick angled axial sections acquired from the foramen magnum to the vertex. For r adiation dose reduction, the following was used: automated exposure control, adjustment of mA and/or kV according to patient size. COMPARISON: None. FINDINGS: Image quality: Excellent. CSF spaces: Basal cisterns are patent. No extra-axial fluid collections. Ventricles are normal in size and shape. Brain: No midline shift. No intracranial masses or hemorrhage. Bee-white matter interface is norm al. Skull and face: Calvarium and visualized facial bones are intact, without suspicious lesions. Sinuses: Visualized sinuses and mastoids are clear. IMPRESSION: Normal CT brain Reviewed by: William Barker MD on 10/13/2022 11:02 AM NOEL Approved by: William Barker MD on 10/13/2022 11:02 AM NOEL Station ID: [id number]
== END 2022-10-13 12:47 | disposition home or self-care (01) ==
LOC: ED 08:57
DX: R51.9 Headache, unspecified (principal)
CPT/HCPCS: 99284